=== PATIENT | male | born 1935 | race Caucasian/White ===

== ENCOUNTER 2018-11-07 16:28 | Emergency (ER) | payer OTHER ==
[~2018-11-07] VITALS: Ht 165.1 cm; Wt 82.6 kg
[~2018-11-07 16:28] MED LIST: ASA PO; ATOR40TA68 PO; GABA300C16 PO; GLIP-160 PO; LOSA25TA2 PO; SERT50TA6 PO; TRA100 PO
[2018-11-07 17:00] VITALS: Ht 165.1 cm; Wt 82.6 kg
[2018-11-07] MEDS ORDERED: KETOROLAC 30 MG INJ IM STA (19:22)
[2018-11-07 19:51] VITALS: BP 135/83; PULSE 71; RESP 16
== END 2018-11-07 19:52 | disposition home or self-care (01) ==
LOC: E/R 16:28
DX: E13.49 Other specified diabetes mellitus with other diabetic neurological complication (principal); I10 Essential (primary) hypertension; Z79.84 Long term (current) use of oral hypoglycemic drugs
CPT/HCPCS: 96372; 99284; J1885